=== PATIENT | male | born 1970 | race Caucasian/White ===

== ENCOUNTER → 2022-01-02 15:19 | Outpatient (BNVA) | payer OTHER, SELFPAY | PROVIDERS: PCP Internal Medicine; Visit Provider Hospitalist ==

== ENCOUNTER 2023-11-16 09:05 | Outpatient (AMB) | payer OTHER, SELFPAY ==
[2023-11-16 09:11] VITALS: BP 130/74; PULSE 73; O2SAT 99; BMI 28.3
--- NOTE | 2023-11-16 09:11 | A.OFFVIS_ITS ---
Intake Vital Signs 11/16/23 09:11 Height 6 ft Weight 208 lb 5.389 oz BMI 28.3 BP 130/74 Blood Pressure Location Lt brachial Position Sitting Pulse 73 Pulse Source Pulse Oximeter Pulse Oximetry (%) 99 Oxygen Delivery Method Room Air Intake Visit Reasons: Obstructive sleep apnea Allergies Seasonal Allergies Allergy (Unknown, Uncoded 11/16/23 09:15) Itching HPI HPI Comments History of Present Illness Details 01/02/2022 the patient is here for a pulmonary follow-up visit. Overall the patient has been doing well. He continues uses APAP with good effect. Therapy has been affecting beneficial. He does use it for more than 4 hours a night. We did download the machine seems like his AHI is within normal limits. meantime he also has a history of asthma. Seems like the patient has been having intermittent wheezing. He does not uses short-acting beta agonists. I did advise him to use it specially 15 minutes before extraneous activity and also as needed for shortness of breath and wheezing. If he is noticing that he is using more than twice a week he can always call in order to prescribe a long-acting inhaler. At this point I do not feel patient benefits from additional medication. He does have a nasal congestion issue. He has been using the fluticasone nasal spray. I did requiring that he starts a nasal rinsing routine at nighttime prior to using CPAP. 06/25/2022 the patient is here for a pulmonary follow-up visit. Overall he is doing relatively well. He has been using his CPAP every night. The CPAP therapy has been affecting beneficial. He has been getting supplies regularly. he has been noticing some bloating sensation. We did download the CPAP. Appears that his AHI is well below 1 which is reassuring. His average pressure is around 8 cm and a maximum pressure goes to 9 cm. His machine is set up 4-16. will go ahead and decrease the maximum pressure to 9 cm with hopes that he is not taking on too much pressure. If the patient does not feel any better or if he does not like the decrease in the maximum pressure will go ahead and change it back once. he also complains of some difficulty with insomnia. He does go to bed well but then if he goes to the bathroom in the middle the night he has a hard time falling back asleep. The patient is not interested in trying any prescription sleep aids at this time. We did talk about natural therapies such as using natural medicines. He will consider starting some melatonin as well. The patient is using the Neti bottle with good effect. He does use it every night which is good before using his CPAP. He also is using allergy medicine. The patient had an allergy shots in the past but he is not interested in doing right now. If the patient has has any worsening allergy symptoms he can always call and we can refer him to a different laboratory specialist. 11/16/2023 the patient is here for a pulm onary follow-up visit. He continues to do very well with the CPAP. The CPAP therapy continues to be affecting beneficial. He did bring the CPAP in. He does state that his significant other has been complaining that he has been snoring while wearing the CPAP. Therefore he brought it in we downloaded the data. He does use it more than 4 hours a night. His AHI down to 0.3 events an hour and his average pressure is around 10 cm. Explained to him that the settings right now the APAP is 4 to 18. Therefore it does take the machine sometime to buildup to the therapeutic range. I did recommend that we can up the minimum pressure to 6 to try to improve that. However, the right now the machine is working just fine. He rather have the low pressure as he tolerates it better and wants to leave the same. In addition to that he has been noticing that before he starts the machine is same that the motor is no longer working adequately in the machine now older than 8 years. He goes through [facility] for his CPAP. At this point based on the fact that the motor is no longer working effectively for this older CPAP he does need a replacement machine. Will request a replacement AirSense 11 for the patient at this time. The patient also complaining about gout and weight gain. He needs to be careful with his alcohol intake and he will cut down on sugars in make additional lifestyle changes. [facility] Medical History (Updated 01/04/22 @ 23:13 by Cal Perry MD) Chronic rhinitis Asthma SEYMOUR (obstructive sleep apnea) Social History (Updated 01/02/22 @ 15:25 by REN Perez) Patient Tobacco Use Status: Never used Tobacco Review of Systems Const Denies daytime sleepiness, Denies difficulty sleeping, Denies headache(s), Reports snoring and Reports weight gain Eyes Denies change in vision ENT Denies change in voice, Denies headache(s), Reports nasal congestion and Reports nasal discharge Card Denies chest pain Resp Reports cough and Reports snoring GI Denies abdominal pain Musc Reports no additional complaints Skin/Breast Denies rash Neuro Denies headache(s) Endo Reports no additional complaints Physical Exam Vital Signs: Last Vital Signs Pulse 73 11/16/23 09:11 BP 130/74 11/16/23 09:11 Pulse Ox 99 11/16/23 09:11 Oxygen Delivery Method Room Air 11/16/23 09:11 BMI result Body Mass Index 28.3 Const General: alert Neck Neck: Yes normal visual inspection, Yes full ROM and Yes no lymphadenopathy Chest Chest palpation & inspection: normal inspection of the chest Resp Auscultation: clear to auscultation bilaterally and no wheezes Cardio Rate: regular rate Rhythm: regular rhythm Heart sounds: S1 normal heart sound present and S2 normal heart sound present GI Palpation (GI): Soft to palpation and nontender Auscultation: normal bowel sounds Skin General skin exam: rashes and/or lesions noted Assessment & Plan Assessment & Plan (1) SEYMOUR (obstructive sleep apnea): Code(s): G47.33 - Obstructive sleep apnea (adult) (pediatric) (2) Asthma: Code(s): J45.909 - Unspecified asthma, uncomplicated Qualifiers: Asthma severity: mild Asthma persistence: intermittent Asthma complication type: uncomplicated Qualified Code(s): J45.20 - Mild intermittent asthma, uncomplicated (3) Chronic rhinitis: Code(s): J31.0 - Chronic rhinitis Plan continue APAP, machine's motor malfunctioning needs a replacement APAP consider increasing min pressure for snorring from 4->6 ARISTIDES as needed Nasal rinsing PM Fluticasone spray F/U 1 yr Coding Level of Care Code Est Pt Level 4 (81824) Diagnoses SEYMOUR (obstructive sleep apnea) G47.33 Mild intermittent asthma without complication J45.20 Asthma severity: mild Asthma persistence: intermittent Asthma complication type: uncomplicated Chronic rhinitis J31.0 Time Spent (min) 17
== END 2023-11-16 09:38 | disposition home or self-care (01) ==
PROVIDERS: PCP Internal Medicine; Visit Provider Hospitalist
DX: G47.33 Obstructive sleep apnea (adult) (pediatric) (principal); J45.20 Mild intermittent asthma, uncomplicated; J31.0 Chronic rhinitis
CPT/HCPCS: 99214

== ENCOUNTER → 2023-11-16 09:05 | Outpatient (BNVA) | payer OTHER, SELFPAY | PROVIDERS: PCP Internal Medicine; Visit Provider Hospitalist ==

== ENCOUNTER 2024-11-16 09:12 | Outpatient (AMB) | payer OTHER, SELFPAY ==
[2024-11-16 09:14] VITALS: BP 120/64; PULSE 75; O2SAT 98
--- NOTE | 2024-11-16 09:14 | MHC.OFFVIS ---
Vital Signs 11/16/24 09:14 Weight 200 lb 9.93 oz BP 120/64 Blood Pressure Location Lt brachial Position Sitting Pulse 75 Pulse Source Pulse Oximeter Pulse Oximetry (%) 98 Oxygen Delivery Method Room Air Intake Visit Reasons: Obstructive sleep apnea Allergies Seasonal Allergies Allergy (Unknown, Uncoded 11/16/24 09:18) Itching Medication List - Last Reconciled 11/16/24 by Maddi Chacne LPN albuterol sulfate 90 mcg/actuation 2 inhalations inhalation Q6H PRN 30 days aspirin (Adult Low Dose Aspirin) 81 mg PO DAILY atorvastatin 40 mg PO DAILY atorvastatin (Lipitor) 80 mg PO DAILY cetirizine (Zyrtec) 10 mg PO DAILY PRN fluticasone propionate 50 mcg/actuation 1 spray intranasal DAILY PRN HPI Comments Details: 01/02/2022 the patient is here for a pulmonary follow-up visit. Overall the patient has been doing well. He continues uses APAP with good effect. Therapy has been affecting beneficial. He does use it for more than 4 hours a night. We did download the machine seems like his AHI is within normal limits. meantime he also has a history of asthma. Seems like the patient has been having intermittent wheezing. He does not uses short-acting beta agonists. I did advise him to use it specially 15 minutes before extraneous activity and also as needed for shortness of breath and wheezing. If he is noticing that he is using more than twice a week he can always call in order to prescribe a long-acting inhaler. At this point I do not feel patient benefits from additional medication. He does have a nasal congestion issue. He has been using the fluticasone nasal spray. I did requiring that he starts a nasal rinsing routine at nighttime prior to using CPAP. 06/25/2022 the patient is here for a pulmonary follow-up visit. Overall he is doing relatively well. He has been using his CPAP every night. The CPAP therapy has been affecting beneficial. He has been getting supplies regularly. he has been noticing some bloating sensation. We did download the CPAP. Appears that his AHI is well below 1 which is reassuring. His average pressure is around 8 cm and a maximum pressure goes to 9 cm. His machine is set up 4-16. will go ahead and decrease the maximum pressure to 9 cm with hopes that he is not taking on too much pressure. If the patient does not feel any better or if he does not like the decrease in the maximum pressure will go ahead and change it back once. he also complains of some difficulty with insomnia. He does go to bed well but then if he goes to the bathroom in the middle the night he has a hard time falling back asleep. The patient is not interested in trying any prescription sleep aids at this time. We did talk about natural therapies such as using natural medicines. He will consider starting some melatonin as well. The patient is using the Neti bottle with good effect. He does use it every night which is good before using his CPAP. He also is using allergy medicine. The patient had an allergy shots in the past but he is not interested in doing right now. If the patient has has any worsening allergy symptoms he can always call and we can refer him to a different optical instruments supervisor. 11/16/2023 the patient is here for a pulmonary follow-up visit. He continues to do very well with the CPAP. The CPAP therapy continues to be affecting beneficial. He did bring the CPAP in. He does state that his significant other has been complaining that he has been snoring while wearing the CPAP. Therefore he brought it in we downloaded the data. He does use it more than 4 hours a night. His AHI down to 0.3 events an hour and his average pressure is around 10 cm. Explained to him that the settings right now the APAP is 4 to 18. Therefore it does take the machine sometime to buildup to the therapeutic range. I did recommend that we can up the minimum pressure to 6 to try to improve that. However, the right now the machine is working just fine. He rather have the low pressure as he tolerates it better and wants to leave the same. In addition to that he has been noticing that before he starts the machine is same that the motor is no longer working adequately in the machine now older than 8 years. He goes through [facility] for his CPAP. At this point based on the fact that the motor is no longer working effectively for this older CPAP he does need a replacement machine. Will request a replacement AirSense 11 for the patient at this time. The patient also complaining about gout and weight gain. He needs to be careful with his alcohol intake and he will cut down on sugars in make additional lifestyle changes. 11/16/2024 the patient is here for a pulmonary follow-up visit. The patient overall has been doing well. CPAP therapy continues to be affecting beneficial. He does use it for about 8 hours a night. He still feels tired at times. May be related to allergies. He started taking histamines more regularly and has been feeling better. He does have a cardiac condition so therefore the use of stimulants are not a reasonable option for him. He can try some testing just see if this helps similar bit. In the meantime the patient does snore at times. Will be reasonable just to increase his minimum pressure. He does want to increase it to much since his AHI is already 0.7. Therefore we went up to 5 cm of water. He can always increase it further if need be. As far as the allergies seems to be doing well in the antihistamines. He does have a rescue inhaler but I advised him not to use it regularly unless he has chest tightness and wheezing. Specially because his cardiac condition. The patient is doing well follow-up in a year's time. She has any issues prior to that he will call for an earlier assessment. [facility] Medical History (Updated 01/04/22 @ 23:13 by Cal Perry MD) Chronic rhinitis Asthma SEYMOUR (obstructive sleep apnea) Social History (Updated 01/02/22 @ 15:25 by REN Perez) Patient Tobacco Use Status: Never used Tobacco Review of Systems Const Denies daytime sleepiness, Denies difficulty sleeping, Denies headache(s), Reports snoring and Reports weight gain Eyes Denies change in vision ENT Denies change in voice, Denies headache(s), Reports nasal congestion and Reports nasal discharge Card Denies chest pain Resp Reports cough and Reports snoring GI Denies abdominal pain Musc Reports no additional complaints Skin/Breast Denies rash Neuro Denies headache(s) Endo Reports no additional complaints Physical Exam Vital Signs: Last Vital Signs Pulse 75 11/16/24 09:14 BP 120/64 11/16/24 09:14 Pulse Ox 98 11/16/24 09:14 Oxygen Delivery Method Room Air 11/16/24 09:14 Const General: alert Neck Neck: Yes normal visual inspection, Yes full ROM and Yes no lymphadenopathy Chest Chest palpation & inspection: normal inspection of the chest Resp Auscultation: clear to auscultation bilaterally and no wheezes Cardio Rate: regular rate Rhythm: regular rhythm Heart sounds: S1 normal heart sound present and S2 normal heart sound present GI Palpation (GI): Soft to palpation and nontender Auscultation: normal bowel sounds Skin General skin exam: rashes and/or lesions noted Assessment & Plan Assessment & Plan (1) SEYMOUR (obstructive sleep apnea): Code(s): G47.33 - Obstructive sleep apnea (adult) (pediatric) Category: Medical (2) Asthma: Code(s): J45.909 - Unspecified asthma, uncomplicated Category: Medical Qualifiers: Asthma complication type: uncomplicated Asthma persistence: intermittent Asthma severity: mild Qualified Code(s): J45.20 - Mild intermittent asthma, uncomplicated (3) Chronic rhinitis: Code(s): J31.0 - Chronic rhinitis Category: Medical Plan continue APAP adjusted 4-16->5-14 ARISTIDES as needed Nasal rinsing PM Fluticasone spray F/U 1 yr Coding Level of Care Code Est Pt Level 4 (58638) Diagnoses SEYMOUR (obstructive sleep apnea) G47.33 Mild intermittent asthma without complication J45.20 Asthma complication type: uncomplicated Asthma persistence: intermittent Asthma severity: mild Chronic rhinitis J31.0 Time Spent (min) 16
== END 2024-11-16 10:29 | disposition home or self-care (01) ==
PROVIDERS: PCP Internal Medicine; Visit Provider Hospitalist
DX: G47.33 Obstructive sleep apnea (adult) (pediatric) (principal); J45.20 Mild intermittent asthma, uncomplicated; J31.0 Chronic rhinitis
CPT/HCPCS: 99214

== ENCOUNTER → 2024-11-16 09:12 | Outpatient (BNVA) | payer OTHER, SELFPAY | PROVIDERS: PCP Internal Medicine; Visit Provider Hospitalist ==